=== PATIENT | male | born 1990 | race Caucasian/White ===

== ENCOUNTER 2019-11-09 22:23 | Emergency (ER) | payer SELFPAY ==
[~2019-11-09] VITALS: Ht 187.9 cm; Wt 141.9 kg
--- OUTSIDE RECORDS SUMMARY | 2019-11-09 22:30 | XMS REPORT | Continuity of Care Document ---
Author Organization Unknown Address Unknown Phone Unavailable Allergies There is no data. Medications There is no data. Problems There is no data. Procedures There is no data. Results Test Result Range LIPID PANEL - 09/05/18 07:17 CHOLESTEROL, TOTAL 146 mg/dL <200 HDL CHOLESTEROL 32 mg/dL >40 TRIGLYCERIDES 331 mg/dL <150 LDL-CHOLESTEROL 74 mg/dL (calc) NRG CHOL/HDLC RATIO 4.6 (calc) <5.0 NON HDL CHOLESTEROL 114 mg/dL (calc) <13 0 GC/CHLAMYDIA (SWAB OR URINE)-RAPID - 04/04 14:40 CHLAMYDIA TRACHOMATIS RNA, TMA NOT DETECTED NOT DETECTED NEISSERIA GONORRHOEAE RNA, TMA NOT DETECTED NOT DETECTED COMMENT NRG Encounters ACCT No. Visit Date/Time Discharge Status Pt. Type Provider Facility Loc./Unit Complaint [id number] 10/15/2019 17:40:00 10/15/2019 23:59: 59 CLS Outpatient [facility] [id number] 06/26/2019 13:20:00 Document Registration [id number] 09/05/2018 07:00:00 Document Registration
--- NOTE | 2019-11-09 23:17 | ED Cough/URI ---
General Chief Complaint: Cough/Cold/Flu Symptoms Stated Complaint: FEVER,COUGH,ITCHY CHEST,FATIGUE Nursing Triage Note: PT. STATED HE HAS A COUGH AND THOUGHT HE HAD A FEVER BUT ON ARRIVAL TO THE ER THE PT TEMP. WAS 98.0. PT. HAD NOT TAKEN ANYTHING FOR A FEVER. PT. HAS NO CHILLS, OR SOB. PT. DID SAY THAT HE HAD A COUGHING FIT AT HOME AND HE WAS DIZZY WHEN HE STOOD UP. PT. EYES ARE RED AND DRY. PT. HAS NOT BEEN AROUND OR KNOWS OF ANY COVID PTS. Sepsis Screen: No Definite Risk Source: patient Exam Limitations: no limitations History of Present Illness Date Seen by Provider: Nov 09, 2019 Time Seen by Provider: 22:50 Initial Comments Intermittent cough for 3 days. No soa. Thought he might have a fever, but never checked it. No known exposure to Covid. No nausea vomiting or diarrhea. Allergies and Home Medications Allergies Coded Allergies: clarithromycin (Verified Allergy, Unknown, 11/09/19) Patient Home Medication List Home Medication List Reviewed: Yes Review of Systems Review of Systems Constitutional: see HPI, dizziness, fever (subjective only); No malaise, No weakness EENTM: no symptoms reported Respiratory: cough; No short of breath Cardiovascular: No chest pain, No palpitations, No syncope Gastrointestinal: No abdominal pain, No constipation, No diarrhea, No loss of appetite, No nausea, No vomiting Musculoskeletal: No back pain, No joint pain Skin: No change in color, No lesions, No rash Past Pcrisql-Zufspx-Lkxeqw Hx Past Med/Social Hx: Reviewed Nursing Past Med/Soc Hx Patient Social History Recent Foreign Travel: No Contact w/Someone Who Travel: No Recent Infectious Disease Expo: No Recent Hopitalizations: No Physical Abuse: No Sexual Abuse: No Mistreated: No Fear: No Seasonal Allergies Seasonal Allergies: No Past Medical History Surgeries: No Respiratory: No Cardiac: No Neurological: No Genitourinary: No Gastrointestinal: No Musculoskeletal: No Endocrine: No HEENT: No Cancer: No Psychosocial: No Integumentary: No Blood Disorders: No Physical Exam Vital Signs - First Documented 11/09/19 22:43 Temp 36.7 Pulse 74 Resp 16 B/P (MAP) 149/99 (116) Pulse Ox 99 O2 Delivery Room Air Capillary Refill : Less Than 3 Seconds Height: '" Weight: lbs. oz. kg; 40.00 BMI Method: General Appearance: WD/WN, no apparent distress HEENT: PERRL/EOMI, normal ENT inspection Neck: non-tender, supple Respiratory: chest non-tender, lungs clear Cardiovascular: regular rate, rhythm, no edema Gastrointestinal: non tender, soft Neurologic/Psychiatric: alert, normal mood/affect Skin: normal color, warm/dry Progress/Results/Core Measures Suspected Sepsis Recent Fever Within 48 Hours: No Infection Criteria Present: Suspected New Infection New/Unexplained Altered Menta: No Sepsis Screen: No Definite Risk SIRS Temperature: Pulse: 74 Respiratory Rate: 16 Blood Pressure 149 /99 Mean: 116 Results/Orders My Orders Orders - DIMPLE BURGESS DO Chest 1 View Ap/Pa Only (11/09/19 22:57) Vital Signs/I&O 11/09/19 11/09/19 11/09/19 22:43 22:55 23:18 Temp 36.7 36.7 Pulse 74 74 Resp 16 16 B/P (MAP) 149/99 (116) 149/99 (116) Pulse Ox 99 99 O2 Delivery Room Air Room Air Room Air Capillary Refill : Less Than 3 Seconds Blood Pressure Mean: 116 Diagnostic Imaging Diagonstic Imaging: Xray Plain Films/CT/US/NM/MRI: chest Comments normal chest Reviewed: Reviewed by Me Departure Impression Primary Impression: Upper respiratory infection Qualified Codes: J06.9 - Acute upper respiratory infection, unspecified Disposition: 01 HOME, SELF-CARE Condition: Stable Departure-Patient Inst. Decision time for Depature: 23:15 Patient Instructions: Viral Upper Respiratory Infection, Adult (DC) Add. Discharge Instructions: As long as you are coughing and feeling like you have a fever you should be wearing a mask (if around other people) and "self quarantining" for 14 days. All discharge instructions reviewed with patient and/or family. Voiced understanding. DIMPLE BURGESS DO Nov 09, 2019 23:17
[2019-11-09 23:18] VITALS: BP 149/99
--- NOTE | 2019-11-10 07:14 | Diagnostic Imaging Report ---
Indication: Cough, fever, chills. Comparison: None. Findings: Single view of the chest demonstrates questionable opacity in the right costophrenic angle. Left lung is clear. The heart is normal. There is no pneumothorax. Osseous structures are age-appropriate. Impression: Questionable opacity of the right costophrenic angle. Followup recommended. Dictated by: Dictated on workstation # [id number]
== END 2019-11-09 23:19 | disposition home or self-care (01) ==
LOC: ER FS 22:27
DX: J06.9 Acute upper respiratory infection, unspecified (principal); Z88.1 Allergy status to other antibiotic agents
CPT/HCPCS: 71045